=== PATIENT | female | born 1965 | race Caucasian/White ===

== ENCOUNTER → 2016-09-06 | Outpatient (CLI) | payer BC ==
--- NOTE | 2016-09-06 09:54 | KCIC ---
PROCEDURE Bilateral digital mammogram with CAD HISTORY Routine screening TECHNIQUE Bilateral digital routine views were obtained with computer-aided detection. COMPARISON August 10, 2014 FINDINGS Density C: heterogeneously dense fatty and fibroglandular tissue. There is no suspicious mass, calcifications or areas of architectural distortion. IMPRESSION No suspicious findings. [Recommend routine screening mammography in one year.] The breast tissue is dense. Mammography is less sensitive for abnormalities in areas of dense tissue. This study was interpreted with the benefit of Computerized Aided Detection (CAD). Mammography is not 100% sensitive in detecting breast cancer. Therefore, a self breast exam and a clinical breast exam are very important. A negative mammogram does not negate a clinically suspicious finding and should not result in a delay in biopsying a clinically suspicious abnormality. BI-RADS category 1: Negative. Electronically signed by: Shlomo Campbell MD (Sep 06, 2016 09:52:40)
== END | disposition home or self-care (01) ==
LOC: KCIC MAMMO 07:59
DX: Z12.31 Encounter for screening mammogram for malignant neoplasm of breast (principal)
CPT/HCPCS: G0202; 77067

== ENCOUNTER → 2017-09-19 | Outpatient (CLI) | payer OTHER | END | disposition home or self-care (01) | LOC: KCIC MAMMO 15:06 | DX: Z12.31 Encounter for screening mammogram for malignant neoplasm of breast (principal) | CPT/HCPCS: 77063; 77067 ==

== ENCOUNTER → 2018-10-09 | Outpatient (CLI) | payer OTHER ==
--- NOTE | 2018-10-09 13:04 | KCIC ---
Bilateral digital screening mammograms with 3-D tomosynthesis: Reason for examination: Routine screening. Comparison is made to previous studies dated 09/19/2017 and 09/06/2016. Bilateral mammograms in CC and oblique projections were obtained with 2-D imaging and 3-D tomosynthesis imaging on a Siemens Inspiration unit and reviewed on the workstation. Interpretation was made with the benefit of CAD. The skin and nipples show no abnormalities. No abnormal axillary lymph nodes are seen. The breast parenchyma shows scattered fatty and fibroglandular density. (Breast density: Category B.) There continues to be some asymmetric parenchyma posterior superiorly in the left breast seen best on oblique view which is unchanged. There also continue to be small nodular parenchymal densities in the left breast medially which are unchanged. There are no new dominant masses, suspicious calcifications or architectural distortion. Impression: No evidence of malignancy. Recommend routine screening. BI-RAD Category 2: Benign. "Our facility is accredited by the [employer] Mammography [employer]." This patient's information has been entered into a reminder system for the patient to be notified with the results of her examination and a target date for the next mammogram. Electronically signed by: Anya Salvador MD (10/09/2018 1:01 PM) [id number]
== END | disposition home or self-care (01) ==
LOC: KCIC MAMMO 10:43
PROVIDERS: ATTEND Internal Medicine
DX: Z12.31 Encounter for screening mammogram for malignant neoplasm of breast (principal); R92.8 Other abnormal and inconclusive findings on diagnostic imaging of breast
CPT/HCPCS: 77063; 77067

== ENCOUNTER → 2020-01-29 | Outpatient (CLI) | payer OTHER ==
--- NOTE | 2020-01-29 16:12 | KCIC ---
Bilateral digital screening mammograms with 3-D tomosynthesis: Reason for examination: Routine screening. Comparison is made to previous studies dated back to 07/08/2012. Bilateral mammograms in CC and oblique projections were obtained with 2-D imaging and 3-D tomosynthesis imaging on a Siemens Inspiration unit and reviewed on the workstation. Interpretation was made with the benefit of CAD. The skin and nipples show no abnormalities. No abnormal axillary lymph nodes are seen. The breast parenchyma shows scattered fatty and fibroglandular density. (Breast density: Category B.) There continues to be a nodular density posterior medially at the 8:30 C position of the left breast which is stable. There are no new dominant masses, suspicious calcifications or architectural distortion. Impression: No evidence of malignancy. Recommend routine screening. BI-RAD Category 2: Benign. "Our facility is accredited by the [employer] Mammography [employer]." This patient's information has been entered into a reminder system for the patient to be notified with the results of her examination and a target date for the next mammogram. Electronically signed by: Anya Salvador MD (01/29/2020 4:09 PM) [email or web address]
== END | disposition home or self-care (01) ==
LOC: KCIC MAMMO 11:03
PROVIDERS: ATTEND Internal Medicine
DX: Z12.31 Encounter for screening mammogram for malignant neoplasm of breast (principal); N64.89 Other specified disorders of breast
CPT/HCPCS: 77063; 77067

== ENCOUNTER → 2021-02-24 | Outpatient (CLI) | payer BC ==
--- NOTE | 2021-02-25 09:22 | KCIC ---
Bilateral digital screening 2-D and 3-D (digital breast tomosynthesis) mammograms with CAD: Reason for examination: Routine screening. Comparison: Mammograms from 01/29/2020, 02/08/2019, and 09/19/2017. Interpretation was made with the benefit of CAD. FINDINGS: Breast density: Category B. There are scattered areas of fibroglandular density. There are a small oval circumscribed masses in the left breast which have not changed significantly. No new breast mass is seen. No malignant appearing calcifications or architectural distortion is iden tified. IMPRESSION: No evidence of malignancy. Recommend routine screening. Assessment: BI-RADS 2. Benign findings.. Recommendation: Routine screening mammograms. The patient's information was entered into the mammography reminder system to receive her results by mail and give a target recall date for the next mammogram. A reminder letter will be generated. Electronically signed by: Marjan Savage MD (02/25/2021 9:20 AM) [email or web address]
== END ==
LOC: KCIC MAMMO 09:24
PROVIDERS: ATTEND Obstetrics & Gynecology
DX: Z12.31 Encounter for screening mammogram for malignant neoplasm of breast (principal)
CPT/HCPCS: 77063; 77067